=== PATIENT | female | born 1940 | race Caucasian/White ===

== ENCOUNTER 2016-04-08 07:28 | Observation (INO) ==
--- NOTE | 2016-04-08 07:43 | Emergency Department Note ---
Disposition Clinical Impression: Acute kidney injury Diverticulitis large intestine Qualifiers: Diverticulitis bleeding: without bleeding Diverticulitis complication: without perforation or abscess Qualified Code(s): K57.32 - Diverticulitis of large intestine without perforation or abscess without bleeding Disposition: Admitted As Inpatient Condition: Fair Time of Disposition: 09:44 Abdominal Pain HPI - General Chief Complaint: ED Abdominal Pain Stated Complaint: ABD Pain Time Seen by Provider: 04/08/16 07:37 Source: patient Mode of arrival: ambulatory Limitations: no limitations Nursing Notes Reviewed: Yes Vital Signs Reviewed: Yes - History of Present Illness HPI Narrative: 76-year-old with a history of diverticulitis who comes in complaining of left- sided abdominal pain. Patient was recently hospitalized for UTI and diverticular disease. Completed a 10 day course of Cipro and Flagyl. She states over the last couple days her pain is got significantly worse. The patient has had previous resection of her colon related to diverticular disease. Pt Subjective Complaint: abdominal pain Onset (ago): day(s) Consistency: constant Location: LLQ Pain Severity: moderate, severe Pain Scale: 9 Quality: aching Radiation: none Migration to: no migration Improves with: nothing Worsens with: nothing Associated symptoms: Reports: nausea, diarrhea. Denies: fever, constipation, hematochezia, melena - Related Data Home Medications Medication Instructions Recorded Confirmed Citalopram Hydrobromide 10 mg PO DAILY 03/18/16 04/08/16 [Citalopram HBr] Diclofenac Sodium [Voltaren] 75 mg PO BID 03/18/16 04/08/16 Esomeprazole Magnesium [Nexium] 40 mg PO DAILY 03/18/16 04/08/16 Losartan Potassium [Cozaar] 50 mg PO DAILY 03/18/16 04/08/16 Rosuvastatin Calcium [Crestor] 5 mg PO DAILY 03/18/16 04/08/16 Triamterene/Hydrochlorothiazid 1 each PO DAILY 03/18/16 04/08/16 [Dyazide 37.5-25 Capsule] Verapamil HCl [Verapamil ER] 240 mg PO DAILY 03/18/16 04/08/16 Cranberry Conc/Ascorbic Acid 1 each PO BID 03/19/16 04/08/16 [Cranberry Urinary Comfort Sfgl] Magnesium Oxide [Magnesium] 400 mg PO BID 03/19/16 04/08/16 Allergies Allergy/AdvReac Type Severity Reaction Status Date / Time No Known Allergies Allergy Verified 04/08/16 09:56 Constitutional: Denies: fever, chills, weakness, weight change Eyes: Denies: eye pain, eye discharge, vision change ENT ED: Denies: ear pain, throat pain, dental pain, hearing loss, epistaxis, congestion, dysphagia Cardiovascular: Denies: chest pain, palpitations, dyspnea on exertion, edema, syncope Respiratory: Denies: cough, dyspnea, wheezes, hemoptysis, stridor Gastrointestinal: Reports: abdominal pain. Denies: nausea, vomiting, diarrhea, constipation, hematemesis, melena, hematochezia Genitourinary: Denies: dysuria, frequency, hematuria, discharge Musculoskeletal: Denies: back pain, neck pain, arthralgia, myalgia Integumentary: Denies: rash, abrasion, lesions Neurological: Denies: headache, weakness, numbness, paresthesias, confusion, abnormal gait, vertigo Psychiatric: Denies: anxiety, depression, suicidal thoughts, homicidal thoughts , auditory hallucinations, visual hallucinations Endocrine: Denies: fatigue Hematological/Lymphatic: Denies: easy bleeding, easy bruising Allergic/Immunologic: Denies: facial swelling, urticaria Abdominal Pain PMH - Past Medical History Medical history: Reports: GERD, hyperlipidemia, hypertension Female Surgical History: Reports: cholecystectomy, hysterectomy 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 Psychiatric history: Reports: no psych history - Social History Smoking status: Never smoker Alcohol use: Reports: none Drug use: Reports: none Physical Exam - General Limitations: no limitations General appearance: alert, in no apparent distress - Head Head exam: atraumatic, normocephalic, normal inspection - Eye Eye exam: Present: normal appearance, PERRL, EOMI - ENT ENT exam: normal exam, normal oropharynx, mucous membranes moist - Neck Neck exam: Present: normal inspection, full ROM, trachea midline - Chest Chest inspection: Present: normal inspection, symmetric chest wall rise - Respiratory Respiratory exam: Present: normal lung sounds bilaterally - Cardiovascular Cardiovascular exam: Present: regular rate, normal rhythm, normal heart sounds - Abdominal Exam Abdominal exam: Present: soft, tenderness. Absent: guarding, rebound Abdominal tenderness: Present: LLQ - Extremities Exam Extremities exam: Present: normal inspection, full ROM. Absent: tenderness, pedal edema - Expanded Lower Extremity Exam Neurovascular/Tendon exam: Absent: motor deficit, sensory deficit, tendon deficit Gait: observed and normal - Back Exam Back exam: Present: normal inspection, full ROM. Absent: tenderness - Neurological Exam Neurological exam: Present: alert, oriented X3 - Psychiatric Psychiatric exam: Present: normal affect, normal mood - Skin Skin exam: Present: warm, dry, intact, normal color Course Course Narrative: 76-year-old who comes in complaining of abdominal pain not eating or drinking. Has a history of diverticular disease. Workup here included CT scan which shows new transverse colon diverticulitis with improved descending colon diverticulitis. Patient's creatinine is elevated she's not eating or drinking to bring her in for IV fluids and antibiotics. - Reevaluation(s) Reevaluation #1: Patient developed a couple of hives associated with infusion of the Cipro and the right arm. The infusion was stopped patient was given Benadryl and we'll switch her to Zosyn we'll put in a new IV site in the opposite arm. Time: 10:15 - Consultations Consultation #1: Discussed with , admit. Time: 09:43 Vital Signs Temperature 97.7 F 04/08/16 07:31 Pulse Rate 89 04/08/16 07:31 Respiratory Rate 18 04/08/16 07:31 Blood Pressure 148/82 04/08/16 07:31 O2 Sat by Pulse Oximetry 95 04/08/16 07:31 Temperature 97.7 F 04/08/16 07:31 Pulse Rate 83 04/08/16 10:12 Respiratory Rate 18 04/08/16 10:12 Blood Pressure 138/80 04/08/16 10:12 O2 Sat by Pulse Oximetry 98 04/08/16 10:12 Oxygen Delivery Oxygen Delivery Nasal Cannula Abdominal Pain - Lab Data Lab results reviewed: Yes I reviewed the patient's lab results. Result diagrams: 04/08/16 07:53 04/08/16 07:53 Lab Results 04/08/16 04/08/16 04/08/16 Range/Units 07:53 07:53 07:53 WBC 8.2 (4.3-11.1) K/mcL RBC 4.93 (3.82-4.97) M/mcL Hgb 13.6 (11.5-15.4) g/dL Hct 41.5 (35.3-44.9) % MCV 84.2 (83.0-100.0) fL MCH 27.6 L (28.0-33.3) pg MCHC 32.8 (31.6-35.5) g/dL RDW 13.1 (11.5-14.5) % Plt Count 253 (140-400) K/mcL MPV 10.1 (9.4-12.4) fL Immature Gran % 0.4 (0-4) % Seg Neutrophils % 67.7 % Lymphocytes % 19.5 % Monocytes % 8.4 % Eosinophils % 3.5 % Basophils % 0.5 % Neutrophils # 5.6 (1.6-8.9) K/mcL Lymphocytes # 1.6 (0.6-4.6) K/mcL Monocytes # 0.7 (0.0-1.3) K/mcL Eosinophils # 0.3 (0.0-0.6) K/mcL Basophils # 0.0 (0.0-0.2) K/mcL PT 11.3 (9.4-12.1) Seconds INR 1.0 APTT 28.9 (26.0-36.0) Seconds Sodium 131 L (136-145) mEq/L Potassium 3.8 (3.5-4.5) mEq/L Chloride 96 L (98-109) mEq/L Carbon Dioxide 25 (19-29) mEq/L BUN 26 H (7-20) mg/dL Creatinine 1.43 H (0.57-1.11) mg/dL Est GFR ( Amer) 43 L (> 60) Est GFR (Non-Af Amer) 36 L (> 60) BUN/Creatinine Ratio 18 (6-26) Glucose 104 H (70-99) mg/dL Calculated Osmolality 277 L (280-300) Lactic Acid (0.5-2.2) mmol/L Calcium 10.1 (8.6-10.8) mg/dL Total Bilirubin 0.7 (0.2-1.2) mg/dL Direct Bilirubin 0.3 (0.0-0.5) mg/dL Indirect Bilirubin 0.4 (0.0-1.2) mg/dL AST 18 (5-34) Units/L ALT 12 (0-55) Units/L Alkaline Phosphatase 77 (38-126) Units/L Serum Total Protein 7.6 (6.0-8.3) g/dL Albumin 3.2 L (3.5-5.0) g/dL Globulin 4.4 H (2.4-3.5) g/dL Albumin/Globulin Ratio 0.7 L (1.1-2.2) Amylase 56 (25-125) Units/L Lipase 44 (8-78) Units/L Urine Color (Yellow) Urine Clarity (Clear) Urine pH (5.0-8.0) pH Units Ur Specific [place] (1.010-1.025) Urine Protein (Neg-Trace) mg/dL Urine Glucose (UA) (Normal) mg/dL Urine Ketones (Negative) mg/dL Urine Blood (Negative) Urine Nitrite (Negative) Urine Bilirubin (Negative) Urine Urobilinogen (Normal) mg/dL Ur Leukocyte Esterase (Negative) Urine Microscopic RBC (0-3) per hpf Urine Microscopic WBC (0-3) per hpf Ur Squamous Epith Cells (None-Few) per lpf Ur Renal Epithelial Cell (None-Few) per hpf Urine Bacteria (None-Few) per hpf Hyaline Casts (None-Few) per lpf Urine Yeast (None Seen) per hpf Ur Culture Indicated? (NO) 04/08/16 04/08/16 Range/Units 07:53 08:55 WBC (4.3-11.1) K/mcL RBC (3.82-4.97) M/mcL Hgb (11.5-15.4) g/dL Hct (35.3-44.9) % MCV (83.0-100.0) fL MCH (28.0-33.3) pg MCHC (31.6-35.5) g/dL RDW (11.5-14.5) % Plt Count (140-400) K/mcL MPV (9.4-12.4) fL Immature Gran % (0-4) % Seg Neutrophils % % Lymphocytes % % Monocytes % % Eosinophils % % Basophils % % Neutrophils # (1.6-8.9) K/mcL Lymphocytes # (0.6-4.6) K/mcL Monocytes # (0.0-1.3) K/mcL Eosinophils # (0.0-0.6) K/mcL Basophils # (0.0-0.2) K/mcL PT (9.4-12.1) Seconds INR APTT (26.0-36.0) Seconds Sodium (136-145) mEq/L Potassium (3.5-4.5) mEq/L Chloride (98-109) mEq/L Carbon Dioxide (19-29) mEq/L BUN (7-20) mg/dL Creatinine (0.57-1.11) mg/dL Est GFR ( Amer) (> 60) Est GFR (Non-Af Amer) (> 60) BUN/Creatinine Ratio (6-26) Glucose (70-99) mg/dL Calculated Osmolality (280-300) Lactic Acid 1.0 (0.5-2.2) mmol/L Calcium (8.6-10.8) mg/dL Total Bilirubin (0.2-1.2) mg/dL Direct Bilirubin (0.0-0.5) mg/dL Indirect Bilirubin (0.0-1.2) mg/dL AST (5-34) Units/L ALT (0-55) Units/L Alkaline Phosphatase (38-126) Units/L Serum Total Protein (6.0-8.3) g/dL Albumin (3.5-5.0) g/dL Globulin (2.4-3.5) g/dL Albumin/Globulin Ratio (1.1-2.2) Amylase (25-125) Units/L Lipase (8-78) Units/L Urine Color Yellow (Yellow) Urine Clarity Cloudy A (Clear) Urine pH 7.0 (5.0-8.0) pH Units Ur Specific [place] 1.011 (1.010-1.025) Urine Protein Negative (Neg-Trace) mg/dL Urine Glucose (UA) Normal (Normal) mg/dL Urine Ketones Negative (Negative) mg/dL Urine Blood Negative (Negative) Urine Nitrite Negative (Negative) Urine Bilirubin Negative (Negative) Urine Urobilinogen Normal (Normal) mg/dL Ur Leukocyte Esterase Small H (Negative) Urine Microscopic RBC 0-3 (0-3) per hpf Urine Microscopic WBC 5-15 H (0-3) per hpf Ur Squamous Epith Cells Many H (None-Few) per lpf Ur Renal Epithelial Cell Many H (None-Few) per hpf Urine Bacteria Moderate H (None-Few) per hpf Hyaline Casts None Seen (None-Few) per lpf Urine Yeast Many H (None Seen) per hpf Ur Culture Indicated? YES A (NO) - Radiology Data Radiology results reviewed: Yes I reviewed the patient's radiology results. Abdomen/Pelvis CT 04/08/16 07:40 IMPRESSION: Interval development of very mild diverticulitis, mid transverse colon, with resolution of the stated inflammatory changes, descending colon. Diverticulosis. Prior rectosigmoid surgery and patent reanastomosis. Stable small hiatal hernia and mild extra renal pelvis. Midline ventral hernias, containing fat, unchanged. D/ / Kamron Alexis MD / Kamron Alexis MD Interpreting Provider: Kamron Alexis MD
[2016-04-08 08:01] LABS: Basophils % 0.5 %; Eosinophils # 0.3 K/mcL (0.0-0.6); Eosinophils % 3.5 %; Hematocrit 41.5 % (35.3-44.9); Hemoglobin 13.6 g/dL (11.5-15.4); Immature Granulocytes % 0.4 % (0-4); Lymphocytes # 1.6 K/mcL (0.6-4.6); Lymphocytes % 19.5 %; Mean Corpuscular HGB Conc 32.8 g/dL (31.6-35.5); Mean Corpuscular Hemoglobin 27.6 pg (28.0-33.3); Mean Corpuscular Volume 84.2 fL (83.0-100.0); Mean Platelet Volume 10.1 fL (9.4-12.4); Monocytes # 0.7 K/mcL (0.0-1.3); Monocytes % 8.4 %; Neutrophils # 5.6 K/mcL (1.6-8.9); Platelet Count 253 K/mcL (140-400); Red Blood Count 4.93 M/mcL (3.82-4.97); Red Cell Distribution Width 13.1 % (11.5-14.5); Segmented Neutrophils % 67.7 %
[2016-04-08] MEDS ORDERED: *HR* Morphine 2 MG/ML SYRINGE IVP ONE (08:03)
[2016-04-08] MEDS ORDERED: *HR* Promethazine 25 MG/ML VIAL IVP ONE (08:03)
[2016-04-08 08:11] LABS: Prothrombin Time 11.3 Seconds (9.4-12.1)
[2016-04-08 08:14] LABS: Activated Partial Thrombo Time 28.9 Seconds (26.0-36.0)
[2016-04-08 08:16] LABS: Albumin 3.2 g/dL (3.5-5.0); Albumin/Globulin Ratio 0.7 (1.1-2.2); Bilirubin,Direct 0.3 mg/dL (0.0-0.5); Bilirubin,Indirect 0.4 mg/dL (0.0-1.2); Bilirubin,Total 0.7 mg/dL (0.2-1.2); Calcium 10.1 mg/dL (8.6-10.8); Globulin 4.4 g/dL (2.4-3.5); Potassium 3.8 mEq/L (3.5-4.5); Total Protein 7.6 g/dL (6.0-8.3)
[2016-04-08 09:12] LABS: Bilirubin,Urine Negative (Negative); Blood,Urine Negative (Negative); Clarity,Urine Cloudy (Clear); Color,Urine Yellow (Yellow); Glucose,Urine (UA) Normal (Normal); Ketones,Urine Negative (Negative); Leukocyte Esterase,Urine Small (Negative); Nitrite,Urine Negative (Negative); Protein,Urine Negative (Neg-Trace); Specific Gravity,Urine 1.011 (1.010-1.025); Urobilinogen,Urine Normal (Normal)
[2016-04-08 09:14] LABS: Hyaline Casts,Urine None Seen per lpf (None-Few); RBC,Urine 0-3 per hpf (0-3); Squamous Epithelial Cell,Urine Many per lpf (None-Few)
[2016-04-08 09:28] LABS: Renal Epithelial Cells,Urine Many per hpf (None-Few); Yeast,Urine Many per hpf (None Seen)
[2016-04-08 09:31] LABS: Bacteria,Urine Moderate per hpf (None-Few)
[2016-04-08] MEDS ORDERED: MetroNIDAZOLE 500 MG/100 ML 500 MG/100 ML BAG IVPB ONE (09:44)
[2016-04-08] MEDS: 0.9 % Sodium Chloride 1,000 ML IVC SCH ×3 (09:55→15:34)
[2016-04-08] MEDS ORDERED: Piperacillin/Tazobactam 3.375 GM in D5% in Water (Mini-Bag+) 100 ML IVPB ONE (10:10)
--- NOTE | 2016-04-08 10:31 | Internal Med History&Physical ---
Addendum entered and electronically signed by Karishma Ruiz DO 04/08/16 11:32: Case was discussed with Dr. Benz. Given there is no strong evidence of possible Pseudomona infection, will start IV Rocephin instead of Zosyn. Original Note: <Karishma Ruiz - Last Filed: 04/08/16 11:08> Date of Encounter: 04/08/16 Time of Encounter: 10:00 Assessment and Plan (1) Diverticulitis Current visit: No Status: Acute - LLQ abdominal pain with CT A/P suggesting diverticulitis of transverse colon. - Clinically stable with no fever or leukocytosis. - Concern of allergy to Cipro given pruritic hives noted near IV site while patient received IV Cipro in ED. - Will put patient on IV Zosyn and Flagyl. - NPO now for bowel rest. - IV NS for hydration. - IV Morphine prn severe pain. - Continue to monitor. Qualifiers: Diverticulitis site: large intestine Diverticulitis bleeding: without bleeding Diverticulitis complication: without perforation or abscess Qualified Code(s): K57.32 - Diverticulitis of large intestine without perforation or abscess without bleeding (2) Acute kidney injury Current visit: Yes Status: Acute - SCr 1.43 on initial presentation compared to baseline ~ 0.8. - Likely secondary to dehydration given reported poor oral intake secondary to current abdominal pain. - Hydration with IV NS. - Continue to monitor renal function and electrolytes. (3) UTI (urinary tract infection) Current visit: Yes Status: Acute - UA suggests possible UTI with urine culture pending. - Urine culture from prior admission grew roberto-sensitive E. coli. - Continue current regimen of antibiotics. Qualifiers: Urinary tract infection type: site unspecified Hematuria presence: without hematuria Qualified Code(s): N39.0 - Urinary tract infection, site not specified (4) HTN (hypertension) Current visit: No Status: Chronic - Continue home dose Lorsartan. Qualifiers: Hypertension type: essential hypertension Qualified Code(s): I10 - Essential (primary) hypertension (5) DVT prophylaxis Current visit: No Status: Acute - SQ heparin GI prophylaxis - Omeprazole. Internal Medicine - H&P: HPI Chief complaint: LLQ abdominal pain Admitted From: Home Plans for Post Hospital Care: Home History of present illness: Ms. Wilhelm is a 76 year old female with PMH of HTN, HLD, diverticulitis s/p partial colectomy years ago and history of C. difficile. Patient presented with LLQ abdominal pain. Patient was admitted almost three weeks ago for similiar complaint and was treated for diverticulitis and UTI. Patient was discharged home with 10-day course of Cipro & Flagyl, which patient did finish. Patient started to have LLQ abdominal pain again since this Tuesday. She describes it as intermittent crampy LLQ abdominal pain radiating to LUQ. It's aggravated by bending forward and alleviated by lying flat. It's associated with nausea, chills, anorexia and passing gas. Patient's last bowel movement was last night but it's dark as charcoal per patient. Patient also reports occasional urinary leakage but denies dysuria or hematuria. Patient denies fever, dyspnea, chest pain, diarrhea. Past Med Surg Social Fam HX - Past Medical History Medical history: GERD, hyperlipidemia, hypertension, other (Diverticulitis s/p partial colectomy) Psychiatric history: depression - Past Surgical History Surgical History: cholecystectomy, colectomy (Secondary to diverticulitis), hysterectomy, other - Social History Smoking Status: Never smoker Smokeless Tobacco Status: No Alcohol use: none Drug use: none - Family History Mother Hx Family Cardiac Disorders: Yes (Hypertension) Brother Hx Family Endocrine Disorder: Yes (DM) Internal Medicine - H&P: Meds Citalopram Hydrobromide [Citalopram HBr] 10 mg PO DAILY 03/18/16 [History] Diclofenac Sodium [Voltaren] 75 mg PO BID 03/18/16 [History] Esomeprazole Magnesium [Nexium] 40 mg PO DAILY 03/18/16 [History] Losartan Potassium [Cozaar] 50 mg PO DAILY 03/18/16 [History] Rosuvastatin Calcium [Crestor] 5 mg PO DAILY 03/18/16 [History] Triamterene/Hydrochlorothiazid [Dyazide 37.5-25 Capsule] 1 each PO DAILY [History] Verapamil HCl [Verapamil ER] 240 mg PO DAILY 03/18/16 [History] Cranberry Conc/Ascorbic Acid [Cranberry Urinary Comfort Sfgl] 1 each PO BID 12/25 [History] Magnesium Oxide [Magnesium] 400 mg PO BID 03/19/16 [History] Allergies ciprofloxacin [From Cipro] Allergy (Verified 04/08/16 10:40) Hives All Systems PM: A 10-system review of systems was performed and is negative for pertinent findings except as documented above in the HPI. - Constitutional Constitutional: anorexia, chills, no fever(s), no weight gain, no weight loss - EENT Eyes: no loss of vision Ears: no decreased hearing Nose, mouth and throat: no dysphagia - Cardiovascular Cardiovascular ROS IM: no chest pain, no edema, no syncope - Respiratory Respiratory: no cough, no dyspnea, no hemoptysis - Gastrointestinal Gastrointestinal: as per HPI, abdominal pain, melena, nausea, no diarrhea, no hematochezia, no vomiting - Genitourinary Genitourinary: urinary incontinence, no difficulty urinating, no dysuria, no hematuria - Musculoskeletal Musculoskeletal ROS IM: no arthralgias, no myalgias - Integumentary Integumentary IM: no pruritus, no rash - Neurological Neurological ROS: no focal weakness, no numbness, no tingling - Hematologic/Lymphatic Hematologic/Lymphatic: no easy bleeding, no easy bruising - Constitutional Vitals: Temp Pulse Resp BP Pulse Ox 97.7 F 83 18 138/80 98 04/08/16 07:31 04/08/16 10:12 04/08/16 10:12 04/08/16 10:12 04/08/16 10:12 General appearance: Present: cooperative, A&O X 3, no acute distress, answers questions appropriately - Head Head exam: Present: atraumatic, normocephalic - Eye Eye exam: Present: PERRL, conjuntiva pink, sclera anicteric - Neck Neck exam general surgery: Present: supple, trachea midline. Absent: lymphadenopathy - Respiratory Respiratory exam: Present: CTAB. Absent: accessory muscle use, rales, rhonchi, wheezes - Cardiovascular Cardiovascular exam: Present: RRR, +S1, +S2. Absent: diastolic murmur, gallop, rubs, systolic murmur - GI/Abdominal GI/Abdominal exam: Present: normal bowel sounds, soft, tenderness (LLQ > LUQ), no peritoneal signs. Absent: distended - Extremities Exam Extremities exam: Present: warm, radial pulses palpable and symetrical. Absent : calf tenderness, cyanotic, pedal edema - Neurological Exam Neurological exam: Present: CN II-XII intact, oriented X3, no focal deficits. Absent: pronater drift, facial droop, speech deficit - Skin Skin exam: Present: dry, intact, warm Internal Med - H&P Results - Labs CBC & Chem 7: 04/08/16 07:53 04/08/16 07:53 <Benz,Yash R - Last Filed: 04/08/16 11:37> Date of Encounter: 04/08/16 Internal Medicine - H&P: HPI History of present illness: Ms. Wilhelm is a 76 year old female All Systems PM: A 10-system review of systems was performed and is negative for pertinent findings except as documented above in the HPI. - Constitutional Vitals: Temp Pulse Resp BP Pulse Ox 97.7 F 75 16 130/82 96 04/08/16 11:01 04/08/16 11:01 04/08/16 11:01 04/08/16 11:01 04/08/16 11:01 Internal Med - H&P Results - Labs CBC & Chem 7: 04/08/16 07:53 04/08/16 07:53 - Attending Attestation I have seen and examined this patient independently. I have discussed the case with the medical information officer, Dr. Shruti Ruiz. I agree with the data gathering in the HPI, physical examination findings, assessment and plan as documented by the resident. Admitted due to diverticulitis and JASE. Patient will continue with close monitoring, iv antibiotics (will continue with iv rocephin and flagyl for now, will d/c zosyn), iv fluids, NPO in the meantime. The plan of care was discussed in detail with the patient and her family members, they expressed understanding.
[2016-04-08] MEDS ORDERED: 0.9 % Sodium Chloride 1,000 ML IVC ONE (10:52)
[2016-04-08] MEDS ORDERED: *HR* Morphine 2 MG/ML SYRINGE IVP PRN (11:22)
[2016-04-08] MEDS ORDERED: Naloxone 0.4 MG/ML INJ IVP PRN (15:38)
[2016-04-08] MEDS ORDERED: Piperacillin/Tazobactam 3.375 GM in D5% in Water (Mini-Bag+) 100 ML IVPB SCH (16:00)
[2016-04-08] MEDS: MetroNIDAZOLE 500 MG/100 ML 500 MG/100 ML BAG IVPB SCH (18:34)
[2016-04-08] MEDS: ESOMEPRAZOLE MAGNESIUM 40 MG PO SCH (18:35)
[2016-04-08] MEDS: *HR* Heparin 5,000 UNIT/ML VIAL SQ SCH (18:35)
[2016-04-09] MEDS: MetroNIDAZOLE 500 MG/100 ML 500 MG/100 ML BAG IVPB SCH ×3 (01:33→15:16)
[2016-04-09 05:51] LABS: Basophils % 0.5 %; Eosinophils # 0.3 K/mcL (0.0-0.6); Eosinophils % 4.4 %; Immature Granulocytes % 0.5 % (0-4); Immature Platelets 3.5 % (1.1-6.1); Lymphocytes # 1.2 K/mcL (0.6-4.6); Lymphocytes % 21.6 %; Mean Corpuscular HGB Conc 32.6 g/dL (31.6-35.5); Mean Corpuscular Hemoglobin 28.1 pg (28.0-33.3); Mean Corpuscular Volume 86.2 fL (83.0-100.0); Mean Platelet Volume 10.3 fL (9.4-12.4); Monocytes # 0.5 K/mcL (0.0-1.3); Monocytes % 9.2 %; Neutrophils # 3.6 K/mcL (1.6-8.9); Platelet Count 207 K/mcL (140-400); Red Blood Count 4.06 M/mcL (3.82-4.97); Red Cell Distribution Width 13.2 % (11.5-14.5); Segmented Neutrophils % 63.8 %
[2016-04-09 05:54] LABS: Hemoglobin 11.4 g/dL (11.5-15.4)
[2016-04-09 06:05] LABS: Albumin/Globulin Ratio 0.7 (1.1-2.2); Bilirubin,Total 0.3 mg/dL (0.2-1.2); Globulin 3.7 g/dL (2.4-3.5); Potassium 3.5 mEq/L (3.5-4.5); Total Protein 6.2 g/dL (6.0-8.3)
[2016-04-09 06:08] LABS: Albumin 2.5 g/dL (3.5-5.0)
[2016-04-09] MEDS: *HR* Heparin 5,000 UNIT/ML VIAL SQ SCH ×2 (06:31→17:07)
[2016-04-09] MEDS: ESOMEPRAZOLE MAGNESIUM 40 MG PO SCH (09:00)
[2016-04-09] MEDS: 0.9 % Sodium Chloride 1,000 ML IVC SCH ×4 (09:01→15:21)
[2016-04-09] MEDS: Acetaminophen 325 MG TABLET PO PRN (17:07)
--- NOTE | 2016-04-09 19:38 | Internal Med Progress Note ---
Date of Encounter: 04/09/16 Time of Encounter: 19:35 - Assessment and plan (1) Acute kidney injury Current Visit: Yes Status: Acute Assessment and plan: resolved , will D/C fluids Code(s): N17.9 - Acute kidney failure, unspecified SNOMED Code(s): 81025575 (2) Diverticulitis large intestine Current Visit: Yes Status: Acute Assessment and plan: continue current treatment , Advance diet as tolerated , will check stool studies if any loose bowel movement Qualifiers: Diverticulitis bleeding: without bleeding Diverticulitis complication: without perforation or abscess Qualified Code(s): K57.32 - Diverticulitis of large intestine without perforation or abscess without bleeding (3) UTI (urinary tract infection) Current Visit: Yes Status: Acute Assessment and plan: Continue ceftriaxone awaiting final urine culture Qualifiers: Urinary tract infection type: site unspecified Hematuria presence: without hematuria Qualified Code(s): N39.0 - Urinary tract infection, site not specified Code(s): N39.0 - Urinary tract infection, site not specified SNOMED Code(s): 60665138 - Time Spent With Patient 25 - 35 minutes - Subjective Interval history: Patient is feeling much better. marked improvement of abdominal pain , sever diarrhea on wens , No BM since then .No nausea or vomiting , She is tolerating full liquid diet, C/o pressure like sensation in suprapubic area - Constitutional Vitals: Temp Pulse Resp BP Pulse Ox 98.0 F 72 14 126/71 96 04/09/16 19:23 04/09/16 19:23 04/09/16 19:23 04/09/16 19:23 04/09/16 19:23 General appearance: Present: cooperative, A&O X 3, no acute distress, answers questions appropriately - Head Head exam: Present: atraumatic, normocephalic - Respiratory Respiratory exam: Present: CTAB. Absent: accessory muscle use, rales, rhonchi, wheezes - Cardiovascular Cardiovascular exam: Present: RRR, +S1, +S2. Absent: diastolic murmur, gallop, rubs, systolic murmur - GI/Abdominal GI/Abdominal exam: Present: normal bowel sounds, soft, tenderness (mild diffuse tenderness ), no peritoneal signs. Absent: distended - Extremities Exam Extremities exam: Present: warm, radial pulses palpable and symetrical. Absent : calf tenderness, cyanotic, pedal edema - Skin Skin exam: Present: dry, intact Internal Medicine: Result - Labs CBC & Chem 7: 04/09/16 05:08 04/09/16 05:08 Labs: Short CBC 04/09/16 Range/Units 05:08 WBC 5.7 (4.3-11.1) K/mcL Hgb 11.4 L D (11.5-15.4) g/dL Hct 35.0 L (35.3-44.9) % Plt Count 207 (140-400) K/mcL Neutrophils # 3.6 (1.6-8.9) K/mcL BMP 04/09/16 05:08 Sodium 137 Potassium 3.5 Chloride 105 Carbon Dioxide 23 BUN 23 H Creatinine 1.47 H Glucose 70 Calcium 9.0 Liver Function 04/09/16 Range/Units 05:08 Total Bilirubin 0.3 (0.2-1.2) mg/dL AST 16 (5-34) Units/L ALT 11 (0-55) Units/L Alkaline Phosphatase 68 (38-126) Units/L Albumin 2.5 L D (3.5-5.0) g/dL - ABG Interpretation ABG results: PT/INR, D-dimer PT 11.3 Seconds (9.4-12.1) 04/08/16 07:53 Consult Discharge Plan - Plan Referrals: Alcon London MD [Primary Care Provider] -
[2016-04-10] MEDS: MetroNIDAZOLE 500 MG/100 ML 500 MG/100 ML BAG IVPB SCH ×4 (00:59→23:15)
[2016-04-10] MEDS: Acetaminophen 325 MG TABLET PO PRN ×3 (01:00→23:15)
[2016-04-10 04:37] LABS: Basophils % 0.5 %; Eosinophils # 0.2 K/mcL (0.0-0.6); Hematocrit 32.9 % (35.3-44.9); Hemoglobin 10.7 g/dL (11.5-15.4); Immature Granulocytes % 0.2 % (0-4); Lymphocytes # 1.4 K/mcL (0.6-4.6); Lymphocytes % 23.8 %; Mean Corpuscular HGB Conc 32.5 g/dL (31.6-35.5); Mean Corpuscular Hemoglobin 27.9 pg (28.0-33.3); Mean Corpuscular Volume 85.7 fL (83.0-100.0); Mean Platelet Volume 10.2 fL (9.4-12.4); Monocytes # 0.5 K/mcL (0.0-1.3); Monocytes % 9.1 %; Neutrophils # 3.6 K/mcL (1.6-8.9); Platelet Count 187 K/mcL (140-400); Red Blood Count 3.84 M/mcL (3.82-4.97); Red Cell Distribution Width 12.7 % (11.5-14.5); Segmented Neutrophils % 62.4 %
[2016-04-10 04:52] LABS: BUN/Creatinine Ratio 16 (6-26); Blood Urea Nitrogen 17 mg/dL (7-20); Calcium 8.7 mg/dL (8.6-10.8); Carbon Dioxide 21 mEq/L (19-29); Chloride 108 mEq/L (98-109); Glucose 67 mg/dL (70-99); Osmolality,Calculated 284 (280-300); Potassium 3.1 mEq/L (3.5-4.5); Sodium 137 mEq/L (136-145); eGFR For African Americans > 60 (> 60); eGFR For Non-African Americans 51 (> 60)
[2016-04-10] MEDS: *HR* Heparin 5,000 UNIT/ML VIAL SQ SCH ×2 (06:20→17:15)
[2016-04-10] MEDS: ESOMEPRAZOLE MAGNESIUM 40 MG PO SCH (08:53)
[2016-04-10] MEDS: Ondansetron 4 MG/2 ML VIAL IVP PRN (12:36)
[2016-04-10] MEDS ORDERED: 0.9 % Sodium Chloride 1,000 ML IVC SCH (14:30)
[2016-04-10] MEDS: Lactobacillus 1 EACH CAP.SPRINK PO SCH ×2 (15:27→20:59)
[2016-04-10] MEDS: Potassium Chloride 40 MEQ in D5% in 0.45% NACL 1,000 ML IVC SCH (15:28)
--- NOTE | 2016-04-10 18:21 | Internal Med Progress Note ---
Date of Encounter: 04/10/16 Time of Encounter: 09:30 - Assessment and plan (1) Acute kidney injury Current Visit: Yes Status: Acute Assessment and plan: resolved Code(s): N17.9 - Acute kidney failure, unspecified SNOMED Code(s): 73877206 (2) Diverticulitis large intestine Current Visit: Yes Status: Acute Assessment and plan: continue current treatment , stool for C. difficile negative , add lactobacillus Qualifiers: Diverticulitis bleeding: without bleeding Diverticulitis complication: without perforation or abscess Qualified Code(s): K57.32 - Diverticulitis of large intestine without perforation or abscess without bleeding (3) UTI (urinary tract infection) Current Visit: Yes Status: Acute Qualifiers: Urinary tract infection type: site unspecified Hematuria presence: without hematuria Qualified Code(s): N39.0 - Urinary tract infection, site not specified Code(s): N39.0 - Urinary tract infection, site not specified SNOMED Code(s): 31596667 (4) Hypokalemia Current Visit: Yes Status: Acute Assessment and plan: Will start D5.9 normal saline with KCL (5) Hypoglycemia Current Visit: Yes Status: Acute Assessment and plan: Add d5 normal saline , monitor - Subjective Interval history: Patient is complaining of diarrhea. Nausea and diffuse abdominal pain more in left lower quadrant - Constitutional Vitals: Temp Pulse Resp BP Pulse Ox 98.2 F 73 14 117/63 94 L 04/10/16 15:45 04/10/16 15:45 04/10/16 15:45 04/10/16 15:45 04/10/16 15:45 General appearance: Present: cooperative, A&O X 3, no acute distress, answers questions appropriately - Head Head exam: Present: atraumatic, normocephalic - Neck Neck exam general surgery: Present: supple, trachea midline. Absent: lymphadenopathy - Respiratory Respiratory exam: Present: CTAB. Absent: accessory muscle use, rales, rhonchi, wheezes - Cardiovascular Cardiovascular exam: Present: RRR, +S1, +S2. Absent: diastolic murmur, gallop, rubs, systolic murmur - GI/Abdominal GI/Abdominal exam: Present: distended, normal bowel sounds, soft, splenomegaly, tenderness (Diffuse abdominal tenderness more in left lower quadrant), no peritoneal signs - Extremities Exam Extremities exam: Present: warm, radial pulses palpable and symetrical. Absent : calf tenderness, cyanotic, pedal edema Internal Medicine: Result - Labs CBC & Chem 7: 04/10/16 04:17 04/10/16 04:17 Labs: Short CBC 04/10/16 Range/Units 04:17 WBC 5.7 (4.3-11.1) K/mcL Hgb 10.7 L (11.5-15.4) g/dL Hct 32.9 L (35.3-44.9) % Plt Count 187 (140-400) K/mcL Neutrophils # 3.6 (1.6-8.9) K/mcL BMP 04/10/16 04:17 Sodium 137 Potassium 3.1 L Chloride 108 Carbon Dioxide 21 BUN 17 Creatinine 1.04 Glucose 67 L Calcium 8.7 - ABG Interpretation ABG results: PT/INR, D-dimer PT 11.3 Seconds (9.4-12.1) 04/08/16 07:53 Consult Discharge Plan - Plan Referrals: Alcon London MD [Primary Care Provider] -
[2016-04-11] MEDS: *HR* Heparin 5,000 UNIT/ML VIAL SQ SCH ×2 (05:12→17:17)
[2016-04-11] MEDS: Potassium Chloride 40 MEQ in D5% in 0.45% NACL 1,000 ML IVC SCH ×3 (06:45→22:15)
[2016-04-11] MEDS: Acetaminophen 325 MG TABLET PO PRN ×2 (08:08→23:41)
[2016-04-11] MEDS: Lactobacillus 1 EACH CAP.SPRINK PO SCH ×3 (08:08→19:38)
[2016-04-11] MEDS: MetroNIDAZOLE 500 MG/100 ML 500 MG/100 ML BAG IVPB SCH ×3 (08:08→23:09)
[2016-04-11] MEDS: ESOMEPRAZOLE MAGNESIUM 40 MG PO SCH (08:09)
--- NOTE | 2016-04-11 11:26 | Internal Med Progress Note ---
Date of Encounter: 04/11/16 Time of Encounter: 08:40 - Assessment and plan (1) Acute kidney injury Current Visit: Yes Status: Acute Assessment and plan: resolved , cut back on IV fluid encouraged oral intake Code(s): N17.9 - Acute kidney failure, unspecified SNOMED Code(s): 02916222 (2) Diverticulitis large intestine Current Visit: Yes Status: Acute Assessment and plan: continue current treatment , stool for C. difficile negative , lactoferrin stool positive , continual: Antibiotic and lactobacillus Qualifiers: Diverticulitis bleeding: without bleeding Diverticulitis complication: without perforation or abscess Qualified Code(s): K57.32 - Diverticulitis of large intestine without perforation or abscess without bleeding (3) UTI (urinary tract infection) Current Visit: Yes Status: Acute Assessment and plan: Continue ceftriaxone awaiting final urine culture Qualifiers: Urinary tract infection type: site unspecified Hematuria presence: without hematuria Qualified Code(s): N39.0 - Urinary tract infection, site not specified Code(s): N39.0 - Urinary tract infection, site not specified SNOMED Code(s): 48181286 (4) Hypokalemia Current Visit: Yes Status: Acute Assessment and plan: Recheck and replace accordingly (5) Hypoglycemia Current Visit: Yes Status: Acute Assessment and plan: resolved - Time Spent With Patient 25 - 35 minutes - Subjective Interval history: Patient stated that her diarrhea is improving. Had 1 loose bowel movement since last night. Tolerating the clear liquid diet. she still has abdomen pain more in the left lower quadrant but it is better than yesterday nausea is improving - Constitutional Vitals: Temp Pulse Resp BP Pulse Ox 97.9 F 79 14 153/84 95 04/11/16 07:49 04/11/16 07:49 04/11/16 07:49 04/11/16 07:49 04/11/16 07:49 General appearance: Present: cooperative, A&O X 3, no acute distress, answers questions appropriately - Head Head exam: Present: atraumatic, normocephalic - Neck Neck exam general surgery: Present: supple, trachea midline. Absent: lymphadenopathy - Respiratory Respiratory exam: Present: CTAB. Absent: accessory muscle use, rales, rhonchi, wheezes - Cardiovascular Cardiovascular exam: Present: RRR, +S1, +S2. Absent: diastolic murmur, gallop, rubs, systolic murmur - GI/Abdominal GI/Abdominal exam: Present: normal bowel sounds, soft, tenderness (Left lower quadrant tenderness improving compared to yesterday), no peritoneal signs. Absent: distended - Extremities Exam Extremities exam: Present: warm, radial pulses palpable and symetrical. Absent : calf tenderness, cyanotic, pedal edema - Neurological Exam Neurological exam: Present: CN II-XII intact, oriented X3, no focal deficits. Absent: pronater drift, facial droop, speech deficit - Skin Skin exam: Present: dry, intact Internal Medicine: Result - Labs CBC & Chem 7: 04/10/16 04:17 04/10/16 04:17 - ABG Interpretation ABG results: PT/INR, D-dimer PT 11.3 Seconds (9.4-12.1) 04/08/16 07:53 Consult Discharge Plan - Plan Referrals: Alcon London MD [Primary Care Provider] -
[2016-04-11 12:16] LABS: Phosphorous 1.9 mg/dL (2.3-4.7); Potassium 3.4 mEq/L (3.5-4.5)
[2016-04-11] MEDS: Ondansetron 4 MG/2 ML VIAL IVP PRN (17:17)
[2016-04-11] MEDS ORDERED: Sodium Phosphate 30 MMOL in D5% in Water 100 ML IVPB ONE (19:11)
[2016-04-11] MEDS ORDERED: Potassium Chloride Elixir 20 MEQ/15 ML UDC PO ONE (19:11)
[2016-04-11] MEDS: Magnesium Sulfate 2 GM in D5% in Water 100 ML IVPB SCH ×2 (19:40→21:06)
[2016-04-12] MEDS: Potassium Chloride 40 MEQ in D5% in 0.45% NACL 1,000 ML IVC SCH (04:29)
[2016-04-12] MEDS: *HR* Heparin 5,000 UNIT/ML VIAL SQ SCH (04:29)
[2016-04-12] MEDS: Lactobacillus 1 EACH CAP.SPRINK PO SCH (07:32)
[2016-04-12] MEDS: Acetaminophen 325 MG TABLET PO PRN (07:32)
[2016-04-12] MEDS: ESOMEPRAZOLE MAGNESIUM 40 MG PO SCH (07:33)
[2016-04-12] MEDS: MetroNIDAZOLE 500 MG/100 ML 500 MG/100 ML BAG IVPB SCH ×2 (07:33→08:43)
[2016-04-12 11:11] VITALS: BP 162/89
--- NOTE | 2016-04-12 13:22 | Discharge Summary ---
Date of Encounter: 04/13/16 Time of Encounter: 13:05 - Discharge Diagnosis (1) Acute kidney injury Priority: Primary Status: Acute Code(s): N17.9 - Acute kidney failure, unspecified SNOMED Code (s): 21646410 (2) Diverticulitis large intestine Priority: Primary Status: Acute Qualifiers: Diverticulitis bleeding: without bleeding Diverticulitis complication: without perforation or abscess Qualified Code(s): K57.32 - Diverticulitis of large intestine without perforation or abscess without bleeding (3) UTI (urinary tract infection) Priority: Primary Status: Acute Qualifiers: Urinary tract infection type: site unspecified Hematuria presence: without hematuria Qualified Code(s): N39.0 - Urinary tract infection, site not specified Code(s): N39.0 - Urinary tract infection, site not specified SNOMED Code(s): 28377338 (4) Hypokalemia Priority: Secondary Status: Acute (5) Hypoglycemia Priority: Secondary Status: Acute - Discharge Medications Prescriptions: Acetaminophen [Tylenol] 650 mg PO Q6HR PRN #90 tablet PRN Reason: Mild Pain (1-3) Amoxicillin/Clavulanate [Augmentin] 875 mg PO BIDWM #10 tablet Lactobacillus [Culturelle] 1 each PO TID #30 cap.sprink MetroNIDAZOLE [Flagyl] 500 mg PO TID #21 tablet Home Medications: Citalopram Hydrobromide [Citalopram HBr] 10 mg PO DAILY 03/18/16 [History] Esomeprazole Magnesium [Nexium] 40 mg PO DAILY 03/18/16 [History] Losartan Potassium [Cozaar] 50 mg PO DAILY 03/18/16 [History] Rosuvastatin Calcium [Crestor] 5 mg PO DAILY 03/18/16 [History] Triamterene/Hydrochlorothiazid [Dyazide 37.5-25 Capsule] 1 each PO DAILY [History] Verapamil HCl [Verapamil ER] 240 mg PO DAILY 03/18/16 [History] Cranberry Conc/Ascorbic Acid [Cranberry Urinary Comfort Sfgl] 1 each PO BID 12/25 [History] Magnesium Oxide [Magnesium] 400 mg PO BID 03/19/16 [History] Acetaminophen [Tylenol] 650 mg PO Q6HR PRN #90 tablet 04/12/16 [Rx] Amoxicillin/Clavulanate [Augmentin] 875 mg PO BIDWM #10 tablet 04/12/16 [Rx] Lactobacillus [Culturelle] 1 each PO TID #30 cap.sprink 04/12/16 [Rx] MetroNIDAZOLE [Flagyl] 500 mg PO TID #21 tablet 04/12/16 [Rx] Allergies/Adverse Reactions: Allergies ciprofloxacin [From Cipro] Allergy (Verified 04/08/16 10:40) Hives Date of admission: 04/08/16 09:51 Primary care physician: Alcon London, Discharging clinician: Kenn Frye - Patient Status Disposition: Home, Self-Care Condition: Good Functional capacity at discharge: independent ambulation Overall status at discharge: patient is progressing back to baseline - Discharge Instructions Instructions: Acetaminophen (By mouth), Metronidazole (By mouth), Amoxicillin/ Clavulanate Potassium (By mouth), Probiotic (By mouth), Diverticulitis (DC), Urinary Tract Infection in Women (DC), Diverticulitis Diet (DC) Follow Up With: Alcon London MD [Primary Care Provider] - (The office is closed today. Please call the office to schedule a follow up appointment for 5-7 days.) Additional Instructions: Follow up with Gastroenterology in next AM - Diet and Activity Activity: increase activity as tolerated, resume usual activities as tolerated Diet: advance to your usual diet Hospital course: Ms. Wilhelm is a 76 year old female with PMH of HTN, HLD, diverticulitis s/p partial colectomy years ago and history of C. difficile. Patient presented with LLQ abdominal pain. Patient was admitted almost three weeks ago for similiar complaint and was treated for diverticulitis and UTI. Patient was discharged home with 10-day course of antibiotics, which patient did finish. Patient started to have LLQ abdominal pain again since this Tuesday. She describes it as intermittent crampy LLQ abdominal pain radiating to LUQ. It's aggravated by bending forward and alleviated by lying flat. It's associated with nausea, chills, anorexia and passing gas. Patient's last bowel movement was one day prior to admission but it's dark as charcoal per patient. Patient also reports occasional urinary leakage but denies dysuria or hematuria. Patient denies fever , dyspnea, chest pain, diarrhea. Patient was admitted to the hospital, start IV hydration in view of worsening of her renal function. We will start patient on ceftriaxone as well as flagyl. Continue to keep the patient nothing by mouth. Patient continued to have severe diarrhea. His stool for C. difficile was negative. His stool for lactoferrin was positive. Patient condition Started to improve during hospitalization. Continue to replace electrolytes. Once improving we started clear liquid diet advanced as tolerated . Patient tolerated all her meals. Discharged patient to follow next day and with logistics intern . Her renal function back to baseline - Time Spent with Patient Total time spent providing and/or coordinating discharge services: - Constitutional Vitals: Temp Pulse Resp BP Pulse Ox 98.7 F 75 15 162/89 93 L 04/12/16 11:10 04/12/16 11:10 04/12/16 11:10 04/12/16 11:10 04/12/16 11:10 General appearance: Present: cooperative, A&O X 3, no acute distress, answers questions appropriately
--- NOTE | 2016-04-12 16:41 | Physician Discharge Referral ---
Home Health/Hosp Referral Info Transfer to: Home Health (Visiting nurse to monitor medication home PT/OT) - Diagnosis (1) Acute kidney injury Status: Acute (2) Diverticulitis large intestine Status: Acute (3) UTI (urinary tract infection) Status: Acute (4) Hypokalemia Status: Acute (5) Hypoglycemia Status: Acute - Respiratory Orders Smoking Cessation: Smoking cessation has been advised. For more information, call the [employer] Quit Line at 0-461-LUZG-NOW. - Transfer Medications Prescriptions: Acetaminophen [Tylenol] 650 mg PO Q6HR PRN #90 tablet PRN Reason: Mild Pain (1-3) Amoxicillin/Clavulanate [Augmentin] 875 mg PO BIDWM #10 tablet Lactobacillus [Culturelle] 1 each PO TID #30 cap.sprink MetroNIDAZOLE [Flagyl] 500 mg PO TID #21 tablet Home Medications: Citalopram Hydrobromide [Citalopram HBr] 10 mg PO DAILY 03/18/16 [History] Esomeprazole Magnesium [Nexium] 40 mg PO DAILY 03/18/16 [History] Losartan Potassium [Cozaar] 50 mg PO DAILY 03/18/16 [History] Rosuvastatin Calcium [Crestor] 5 mg PO DAILY 03/18/16 [History] Triamterene/Hydrochlorothiazid [Dyazide 37.5-25 Capsule] 1 each PO DAILY [History] Verapamil HCl [Verapamil ER] 240 mg PO DAILY 03/18/16 [History] Cranberry Conc/Ascorbic Acid [Cranberry Urinary Comfort Sfgl] 1 each PO BID 12/25 [History] Magnesium Oxide [Magnesium] 400 mg PO BID 03/19/16 [History] Acetaminophen [Tylenol] 650 mg PO Q6HR PRN #90 tablet 04/12/16 [Rx] Amoxicillin/Clavulanate [Augmentin] 875 mg PO BIDWM #10 tablet 04/12/16 [Rx] Lactobacillus [Culturelle] 1 each PO TID #30 cap.sprink 04/12/16 [Rx] MetroNIDAZOLE [Flagyl] 500 mg PO TID #21 tablet 04/12/16 [Rx] Allergies/Adverse Reactions: Allergies ciprofloxacin [From Cipro] Allergy (Verified 04/08/16 10:40) Hives Certification: Further, I certify that my clinical findings support that this patient is homebound (i.e. absences from home require considerable and taxing effort and are for medical reasons or [facility] or infrequently or short duration when for other reasons) because: Attestation: My signature below is to certify that this patient is under my care and that I, or nurse practitioner, or a physician's phlebotomist medical lab assistant working with me, has a face-to -face encounter with this patient.
== END 2016-04-12 14:40 | disposition home or self-care (01) ==
LOC: 3BNU 07:28 → EMEROO 07:28 → 3BNU 10:58
PROVIDERS: ADMIT Internal Medicine; ATTEND Internal Medicine

== ENCOUNTER 2021-10-15 11:55 | Observation (INO) ==
[2021-10-15] MEDS ORDERED: 0.9 % Sodium Chloride 500 ML IVC ONE (12:38)
[2021-10-15 12:53] LABS: Bilirubin,Urine Negative (Negative); Blood,Urine Negative (Negative); Clarity,Urine Clear (Clear); Color,Urine Colorless (Yellow); Glucose,Urine (UA) Normal (Normal); Ketones,Urine Negative (Negative); Leukocyte Esterase,Urine Negative (Negative); Nitrite,Urine Negative (Negative); Protein,Urine Negative (Neg-Trace); Specific Gravity,Urine 1.007 (1.010-1.025); Urobilinogen,Urine Normal (Normal)
[2021-10-15 13:34] LABS: Basophils % 0.6 %; Eosinophils # 0.4 K/mcL (0.0-0.6); Eosinophils % 6.1 %; Hematocrit 39.9 % (35.3-44.9); Hemoglobin 13.2 g/dL (11.5-15.4); Immature Granulocytes % 0.3 % (0-4); Lymphocytes # 1.6 K/mcL (0.6-4.6); Lymphocytes % 24.6 %; Mean Corpuscular HGB Conc 33.1 g/dL (31.6-35.5); Mean Corpuscular Volume 81.6 fL (83.0-100.0); Mean Platelet Volume 10.1 fL (9.4-12.4); Monocytes # 0.6 K/mcL (0.0-1.3); Monocytes % 9.7 %; Neutrophils # 3.7 K/mcL (1.6-8.9); Platelet Count 209 K/mcL (140-400); Red Blood Count 4.89 M/mcL (3.82-4.97); Red Cell Distribution Width 13.4 % (11.5-14.5); Segmented Neutrophils % 58.7 %; White Blood Count 6.4 K/mcL (4.3-11.1)
[2021-10-15 13:53] LABS: BUN/Creatinine Ratio 13 (6-26); Blood Urea Nitrogen 9 mg/dL (8-23); Calcium 8.9 mg/dL (8.6-10.3); Carbon Dioxide 28 mEq/L (23-29); Chloride 89 mEq/L (98-107); Glucose 112 mg/dL (70-105); Osmolality,Calculated 259 (280-300); Potassium 3.6 mEq/L (3.5-5.1); Sodium 125 mEq/L (136-145); eGFR For African Americans > 60 (> 60); eGFR For Non-African Americans > 60 (> 60)
[2021-10-15] MEDS ORDERED: cefTRIAXone 1,000 MG in 0.9 % Sodium Chloride 10 ML IVP ONE (14:00)
[2021-10-15] MEDS ORDERED: Melatonin 3 MG TABLET PO PRN (15:27)
[2021-10-15] MEDS ORDERED: Ondansetron 4 MG/2 ML VIAL IVP PRN (15:27)
[2021-10-15] MEDS ORDERED: Acetaminophen 325 MG TABLET PO PRN (15:27)
[2021-10-15 15:45] LABS: C-Reactive Protein 6 mg/L (Less than 10)
[2021-10-15] MEDS ORDERED: Verapamil ER (24 HR) 240 MG TABLET.ER PO SCH (17:00)
[2021-10-15] MEDS: Verapamil ER (24 HR) 120 MG TABLET.ER PO SCH (17:02)
[2021-10-15 17:04] LABS: Adenovirus Not Detected (Not Detect); Coronavirus 229E Not Detected (Not Detect); Coronavirus HKU1 Not Detected (Not Detect); Coronavirus NL63 Not Detected (Not Detect); Coronavirus OC43 Not Detected (Not Detect)
[2021-10-15 17:05] LABS: Bordetella Pertussis Not Detected (Not Detect); Chlamydophila pneumoniae Not Detected (Not Detect); Human Metapneumovirus Not Detected (Not Detect); Human Rhinovirus/Enterovirus Not Detected (Not Detect); Influenza A Subtype 2009 H1 Not Detected (Not Detect); Influenza B Not Detected (Not Detect); Mycoplasma pneumoniae Not Detected (Not Detect); Parainfluenza Virus 1 Not Detected (Not Detect); Parainfluenza Virus 2 Not Detected (Not Detect); Parainfluenza Virus 3 Not Detected (Not Detect); Parainfluenza Virus 4 Not Detected (Not Detect); Respiratory Syncytial Virus Not Detected (Not Detect); SARS-CoV-2 Not Detected (Not Detect)
[2021-10-15] MEDS ORDERED: Famotidine 20 MG TABLET PO SCH (21:00)
[2021-10-16 01:53] LABS: Basophils % 0.6 %; Eosinophils # 0.5 K/mcL (0.0-0.6); Eosinophils % 7.7 %; Hematocrit 37.9 % (35.3-44.9); Hemoglobin 12.2 g/dL (11.5-15.4); Immature Granulocytes % 0.3 % (0-4); Lymphocytes % 28.8 %; Mean Corpuscular HGB Conc 32.2 g/dL (31.6-35.5); Mean Corpuscular Hemoglobin 26.7 pg (28.0-33.3); Mean Corpuscular Volume 82.9 fL (83.0-100.0); Mean Platelet Volume 10.2 fL (9.4-12.4); Monocytes # 0.7 K/mcL (0.0-1.3); Monocytes % 10.4 %; Neutrophils # 3.5 K/mcL (1.6-8.9); Platelet Count 208 K/mcL (140-400); Red Blood Count 4.57 M/mcL (3.82-4.97); Red Cell Distribution Width 13.6 % (11.5-14.5); Segmented Neutrophils % 52.2 %; White Blood Count 6.8 K/mcL (4.3-11.1)
[2021-10-16 02:16] LABS: BUN/Creatinine Ratio 13 (6-26); Blood Urea Nitrogen 9 mg/dL (8-23); Calcium 8.9 mg/dL (8.6-10.3); Carbon Dioxide 27 mEq/L (23-29); Chloride 93 mEq/L (98-107); Glucose 125 mg/dL (70-105); Magnesium 1.9 mg/dL (1.6-2.6); Osmolality,Calculated 266 (280-300); Potassium 3.2 mEq/L (3.5-5.1); Sodium 128 mEq/L (136-145); eGFR For African Americans > 60 (> 60); eGFR For Non-African Americans > 60 (> 60)
[2021-10-16] MEDS ORDERED: *HR* Enoxaparin 40 MG/0.4 ML SYRINGE SQ SCH (06:00)
[2021-10-16] MEDS: Verapamil ER (24 HR) 120 MG TABLET.ER PO SCH (08:17)
[2021-10-16 08:54] VITALS: BP 135/76; PULSE 65; TEMP 97.9; O2SAT 95
[2021-10-16] MEDS ORDERED: cefTRIAXone 1,000 MG in 0.9 % Sodium Chloride 10 ML IVP SCH (09:00)
== END 2021-10-16 10:51 | disposition home or self-care (01) ==
LOC: EMEROOARM 11:55 → 3ANU 11:55
PROVIDERS: ADMIT Internal Medicine; ATTEND Internal Medicine